=== PATIENT | male | born 1990 | race Caucasian/White ===

== ENCOUNTER 2017-09-18 15:26 | Emergency (ER) | payer BC, OTHER ==
[~2017-09-18] VITALS: Ht 188 cm; Wt 99.8 kg
--- NOTE | 2017-09-18 16:52 | General Progress Note ---
Progress Note Progress Note Surgery: full note to follow. 26M with sacral cellulitis. first noted a few days ago as small area of discomfort and tenderness. went to urgent care and was given PO Keflex and Bactrim and discharged. states he has been taking po abx for 1-2 days now without improvement. has history of Crohn's disease and is currently on Kayli. Has history of perirectal abscess requiring OR drainage. was concerned given history and lack of improvement so came to ED for evaluation. On exam in the proximal sacral region around the buttock cleft he has an area of induration without significant fluctuance. no drainage. distal to that there are some Pilonidal clefts that are small. likely to be uncomplicated pilonidal disease with infection. cannot confirm on exam if there underlying abscess or just induration/cellulitis. Recommend CT scan of pelvis to evaluate. if abscess will need small I&D to drain then course of oral abx. if no abscess should just complete course of abx. discussed with patient and he expressed understanding. will await CT results either way can d/c home on oral abx and some pain meds. office information given to patient and he will follow up with me this Tuesday Raymundo Bojorquez Sep 18, 2017 16:52
[2017-09-18 16:53] LABS: APPEARANCE,URINE CLEAR; BILIRUBIN, URINE NEGATIVE (NEGATIVE); GLUCOSE, URINE (UA) NEGATIVE (NEGATIVE); KETONES,URINE NEGATIVE (NEGATIVE); LEUKOCYTE ESTERASE ,URINE 1+ (NEGATIVE); NITRITE,URINE NEGATIVE (NEGATIVE); PH,URINE 6 (4.5-8.0); PROTEIN,URINE 1+ (NEGATIVE); UROBILINOGEN,URINE 4 MG/DL (0.0-1.0)
[2017-09-18 16:54] LABS: COLOR,URINE YELLOW
[2017-09-18 17:02] LABS: BASOPHILS % (AUTO) 1.7 % (0.0-2.0); EOSINOPHILS % (AUTO) 0.7 % (0.0-3.0); HEMATOCRIT 43.5 % (42.0-52.0); HEMOGLOBIN 15.3 G/DL (14.2-18.0); MEAN CORPUSCULAR VOLUME 89 FL (80-99); MONOCYTES % (AUTO) 12.5 % (1.0-10.0); NEUTROPHILS % (AUTO) 65.2 % (45.0-75.0); PLATELET COUNT 289 K/UL (150-450); RED BLOOD COUNT 4.89 M/UL (4.70-6.10); RED CELL DISTRIBUTION WIDTH 10.5 % (11.6-14.8); WHITE BLOOD COUNT 14.8 K/UL (4.8-10.8)
[2017-09-18 17:04] LABS: ANION GAP 11 mmol/L (5-15); BLOOD UREA NITROGEN 10 mg/dL (7-18); CALCIUM 9.9 MG/DL (8.5-10.1); CARBON DIOXIDE 28 MMOL/L (21-32); CHLORIDE 101 MMOL/L (98-107); CREATININE 1.3 MG/DL (0.55-1.30); POTASSIUM 4.5 MMOL/L (3.5-5.1); SODIUM 140 MMOL/L (136-145)
[2017-09-18 17:14] LABS: ALANINE AMINOTRANSFERASE 66 U/L (12-78); ALBUMIN/GLOBULIN RATIO 0.7 (1.0-2.7); ALKALINE PHOSPHATASE 115 U/L (46-116); ASPARTATE AMINO TRANSFERASE 26 U/L (15-37)
[2017-09-18 17:38] VITALS: BP 109/67
[2017-09-18] MEDS ORDERED: TRAMADOL HCL50 MG ORAL (18:20)
[2017-09-18] MEDS ORDERED: AUGMENTIN 500-1 EACH ORAL (18:20)
[2017-09-18] MEDS ORDERED: IBUPROFEN600 MG ORAL (18:20)
[2017-09-18 18:26] VITALS: BP 109/67
--- NOTE | 2017-09-18 19:39 | Emergency Room Report ---
History of Present Illness General Chief Complaint: Skin Rash/Abscess Source: Patient Present Illness HPI Patient is a 26-year-old male presenting for possible infection on lower back. He states that he noticed a bump on the mid lower back approximately 5 days ago which has been increasing in size and pain. Pain is now 9/10 dull ache and is worse with touch and sitting. He has a stated history of Crohn disease and had a perianal abscess 3 years prior which needed surgery. He states that he also had recent symptoms including cough, fever, chills, sore throat one week ago which is resolving. He has stopped using his Humira during this time. He denies other symptoms including nausea, vomiting, diarrhea, constipation, pain with defecation, abdominal pain Allergies: Coded Allergies: No Known Allergies (Unverified , 09/18/17) Patient History Past Medical History: see triage record Pertinent Family History: none Reviewed Nursing Documentation: PMH: Agreed, PSxH: Agreed Nursing Documentation-PMH Past Medical History: No History, Except For Hx Cardiac Problems: Yes - heart murmur Review of Systems All Other Systems: negative except mentioned in HPI Physical Exam Vital Signs Date Time Temp Pulse Resp B/P (MAP) Pulse Ox O2 Delivery O2 Flow Rate FiO2 09/18/17 15:35 100.0 119 18 128/84 96 Room Air Sp02 EP Interpretation: reviewed, normal General Appearance: no apparent distress, alert, GCS 15, non-toxic Head: normocephalic, atraumatic Eyes: bilateral eye normal inspection, bilateral eye PERRL ENT: hearing grossly normal, normal pharynx, no angioedema, normal voice Neck: full range of motion, supple/symm/no masses Respiratory: chest non-tender, lungs clear, normal breath sounds, speaking full sentences Gastrointestinal: normal bowel sounds, non tender, soft, non-distended, no guarding, no rebound Genitourinary: normal inspection, no CVA tenderness Musculoskeletal: back normal, gait/station normal, normal range of motion, non- tender Neurologic: alert, oriented x3, responsive, sensory intact Psychiatric: judgement/insight normal, memory normal, mood/affect normal, no suicidal/homicidal ideation Skin: rash - indurated erythema to the superior aspect of the gluteal area Medical Decision Making PA Attestation Dr. Fernandes is my supervising physician. Patient management was discussed with my supervising physician Diagnostic Impression: Primary Impression: Pilonidal cyst ER Course Patient is a 26-year-old male presenting for possible infection on lower back. Differential diagnoses considered but not limited to: abscess, pilonidal cyst, nat-anal abscess, cellulitis PE: Afebrile. NAD indurated erythema to the superior aspect of the gluteal area. TTP. Non fluctuant. No signs of tracking to rectum. Blood work shows leukocytosis. Otherwise unremarkable CT scan of the pelvis shows a 2.5 cm cystic density with stranding at the lower sacrum. Pilonidal cyst versus abscess. Dr. Bojorquez was consulted and came to the emergency department for evaluation. He is advised for the patient to be discharged home on Augmentin and to see him in his office on 09/21 The patient understands and agrees with this plan. He was told to return to the emergency department sooner if he notices symptoms including fever, chills, increased pain, increased swelling, pain with defecation, or for any other reason Laboratory Tests Test 09/18/17 16:30 09/18/17 16:32 White Blood Count 14.8 K/UL (4.8-10.8) H Red Blood Count 4.89 M/UL (4.70-6.10) Hemoglobin 15.3 G/DL (14.2-18.0) Hematocrit 43.5 % (42.0-52.0) Mean Corpuscular Volume 89 FL (80-99) Mean Corpuscular Hemoglobin 31.2 PG (27.0-31.0) H Mean Corpuscular Hemoglobin Concent 35.1 G/DL (32.0-36.0) Red Cell Distribution Width 10.5 % (11.6-14.8) L Platelet Count 289 K/UL (150-450) Mean Platelet Volume 9.2 FL (6.5-10.1) Neutrophils (%) (Auto) 65.2 % (45.0-75.0) Lymphocytes (%) (Auto) 20.0 % (20.0-45.0) Monocytes (%) (Auto) 12.5 % (1.0-10.0) H Eosinophils (%) (Auto) 0.7 % (0.0-3.0) Basophils (%) (Auto) 1.7 % (0.0-2.0) Prothrombin Time 10.7 SEC (9.30-11.50) Prothrombin Time INR 1.0 (0.9-1.1) PTT 29 SEC (23-33) Sodium Level 140 MMOL/L (136-145) Potassium Level 4.5 MMOL/L (3.5-5.1) Chloride Level 101 MMOL/L (98-107) Carbon Dioxide Level 28 MMOL/L (21-32) Anion Gap 11 mmol/L (5-15) Blood Urea Nitrogen 10 mg/dL (7-18) Creatinine 1.3 MG/DL (0.55-1.30) Estimate Glomerular Filtration Rate > 60 mL/min (>60) Glucose Level 108 MG/DL (74-106) H Calcium Level 9.9 MG/DL (8.5-10.1) Total Bilirubin 1.0 MG/DL (0.2-1.0) Aspartate Amino Transferase (AST) 26 U/L (15-37) Alanine Aminotransferase (ALT) 66 U/L (12-78) Alkaline Phosphatase 115 U/L (46-116) Total Protein 9.7 G/DL (6.4-8.2) H Albumin 4.0 G/DL (3.4-5.0) Globulin 5.7 g/dL Albumin/Globulin Ratio 0.7 (1.0-2.7) L Lipase 101 U/L (73-393) Urine Color Yellow Urine Appearance Clear Urine pH 6 (4.5-8.0) Urine Specific [place] 1.015 (1.005-1.035) Urine Protein 1+ (NEGATIVE) H Urine Glucose (UA) Negative (NEGATIVE) Urine Ketones Negative (NEGATIVE) Urine Occult Blood 2+ (NEGATIVE) H Urine Nitrite Negative (NEGATIVE) Urine Bilirubin Negative (NEGATIVE) Urine Urobilinogen 4 MG/DL (0.0-1.0) H Urine Leukocyte Esterase 1+ (NEGATIVE) H Urine RBC 5-10 /HPF (0 - 0) H Urine WBC 2-4 /HPF (0 - 0) Urine Squamous Epithelial Cells None /LPF (NONE/OCC) Urine Bacteria Few /HPF (NONE) Lab Results Impression Leukocytosis CT/MRI/US Diagnostic Results CT/MRI/US Diagnostic Results : Imaging Test Ordered: CT pelvis Impression CT scan of the pelvis shows a 2.5 cm cystic density with stranding at the lower sacrum. Pilonidal cyst versus abscess Last Vital Signs Date Time Temp Pulse Resp B/P (MAP) Pulse Ox O2 Delivery O2 Flow Rate FiO2 09/18/17 18:26 99.4 101 17 109/67 96 Room Air Status: improved Disposition: HOME, SELF-CARE Condition: Improved Scripts Tramadol Hcl* (ULTRAM*) 50 Mg Tablet 50 MG ORAL Q6H Y for For Pain, #10 TAB 0 Refills Prov: TERROWANANELLIOTT P.A. 09/18/17 Ibuprofen* (MOTRIN*) 600 Mg Tablet 600 MG ORAL Q8H Y for For Pain, #30 TAB 0 Refills Prov: TERZIANELLIOTT P.A. 09/18/17 Amoxicillin/Potassium Clav 500-125 Tablet* (AUGMENTIN 500-125 TABLET*) 1 Each Tablet 1 TAB ORAL THREE TIMES A DAY, #15 TAB Prov: TERELLIOTT DUENAS P.A. 09/18/17 Patient Instructions: Incision and Drainage of a Pilonidal Cyst Additional Instructions: I discussed my findings with the patient. All questions and concerns have been answered. Treatment and medication compliance have been addressed. Return to ED if symptoms worsen, new symptoms arise, or if needed for any reason. Patient verbalized understanding of discharge instructions. You were seen by Dr. Bojorquez who has provided you his card. You were informed to call him on 09/19 in order to make appointment for 09/21. Please return to the emergency department sooner if you experience any symptoms including fever, worsening pain, pain with defecation, or for any other reason ELLIOTT LO Sep 18, 2017 19:39
--- NOTE | 2017-09-19 14:46 | Consultation ---
History of Present Illness General Date patient seen: Sep 18, 2017 Chief Complaint: Skin Rash/Abscess Present Illness HPI 26M with sacral cellulitis. first noted a few days ago as small area of discomfort and tenderness. went to urgent care and was given PO Keflex and Bactrim and discharged. states he has been taking po abx for 1-2 days now without improvement. has history of Crohn's disease and is currently on Kayli. Has history of perirectal abscess requiring OR drainage. was concerned given history and lack of improvement so came to ED for evaluation. Given location, medical history, and exam surgery called to evaluate for possible intervention. patient seen, history reviewed, labs reviewed. On exam in the proximal sacral region around the buttock cleft he has an area of induration without significant fluctuance. no drainage. distal to that there are some Pilonidal clefts that are small. Allergies: Coded Allergies: No Known Allergies (Unverified , 09/18/17) Medication History Scheduled Amoxicillin/Potassium Clav 500-125 Tablet* (Augmentin 500-125 Tablet*), 1 TAB ORAL THREE TIMES A DAY Scheduled PRN Ibuprofen* (Motrin*), 600 MG ORAL Q8H PRN for For Pain Tramadol Hcl* (Ultram*), 50 MG ORAL Q6H PRN for For Pain Patient History History Provided By: Patient Healthcare decision maker Resuscitation status Advanced Directive on File Past Medical/Surgical History Past Medical/Surgical History: (1) Pilonidal cyst Review of Systems Constitutional: Denies: no symptoms, see HPI, chills, sweats, fever, malaise, weakness, other Eye: Denies: no symptoms, see HPI, eye pain, blurred vision, tearing, double vision, nose pain, nose congestion, acuity changes, discharge, other ENT: Denies: no symptoms, see HPI, ear pain, ear discharge, nose pain, nose congestion, throat pain, throat swelling, mouth pain, hearing loss, nasal discharge, other Respiratory: Denies: no symptoms, see HPI, cough, orthopnea, shortness of breath, stridor, wheezing, AYOUB, sputum, other Cardiovascular: Denies: no symptoms, see HPI, chest pain, edema, palpitations, syncope, PND, other Gastrointestinal: Denies: no symptoms, see HPI, abdominal pain, constipation, diarrhea, nausea, vomiting, melena, hematemesis, other Genitourinary: Denies: no symptoms, see HPI, discharge, dysuria, frequency, hematuria, pain, retention, incontinence, urgency, vag bleed/dc, other Musculoskeletal: Denies: no symptoms, see HPI, back pain, gout, joint pain, joint swelling, muscle pain, muscle stiffness, other Skin: Denies: no symptoms, see HPI, rash, change in color, change in hair/nails , dryness, lesions, other Psychiatric: Denies: no symptoms, see HPI, prior hx, anxiety, depressed feelings, emotional problems, SI, HI, hallucinations, other Neurological: Denies: no symptoms, see HPI, headache, numbness, paresthesia, seizure, tingling, tremors, focal weakness, syncope, dizziness, other Endocrine: Denies: no symptoms, see HPI, excessive sweating, flushing, intolerance to temperature, increased thirst, increased urine, unexplained weight loss, other Hematologic/Lymphatic: Denies: no symptoms, see HPI, anemia, blood clots, easy bleeding, easy bruising, swollen glands, diathesis, other All Other Systems: negative except mentioned in HPI Physical Exam General Appearance: WD/WN, no apparent distress, alert Lines, tubes and drains: peripheral HEENT: normocephalic, atraumatic, mucous membranes moist, PERRL Neck: normal alignment, supple, normal inspection Respiratory/Chest: chest wall non-tender, lungs clear, normal breath sounds, no respiratory distress, no accessory muscle use Cardiovascular/Chest: normal peripheral pulses, normal rate, regular rhythm Abdomen: normal bowel sounds, non tender, soft, no organomegaly, no mass Genitourinary/Rectal: other - 3cm x 2cm sacral cellulitis with induration but no fluctuance. no drainage. small area of pilonidal clefts noted. tender erythema. edema. no drainage Extremities: normal range of motion, non-tender Skin Exam: normal pigmentation, warm/dry Neurologic: alert, oriented x 3, responsive Last 24 Hour Vital Signs Date Time Temp Pulse Resp B/P (MAP) Pulse Ox O2 Delivery O2 Flow Rate FiO2 09/18/17 18:26 99.4 101 17 109/67 96 Room Air 09/18/17 17:38 99.4 101 17 109/67 96 Room Air 09/18/17 15:35 100.0 119 18 128/84 96 Room Air Laboratory Tests Test 09/18/17 16:30 09/18/17 16:32 White Blood Count 14.8 K/UL (4.8-10.8) H Red Blood Count 4.89 M/UL (4.70-6.10) Hemoglobin 15.3 G/DL (14.2-18.0) Hematocrit 43.5 % (42.0-52.0) Mean Corpuscular Volume 89 FL (80-99) Mean Corpuscular Hemoglobin 31.2 PG (27.0-31.0) H Mean Corpuscular Hemoglobin Concent 35.1 G/DL (32.0-36.0) Red Cell Distribution Width 10.5 % (11.6-14.8) L Platelet Count 289 K/UL (150-450) Mean Platelet Volume 9.2 FL (6.5-10.1) Neutrophils (%) (Auto) 65.2 % (45.0-75.0) Lymphocytes (%) (Auto) 20.0 % (20.0-45.0) Monocytes (%) (Auto) 12.5 % (1.0-10.0) H Eosinophils (%) (Auto) 0.7 % (0.0-3.0) Basophils (%) (Auto) 1.7 % (0.0-2.0) Prothrombin Time 10.7 SEC (9.30-11.50) Prothromb Time International Ratio 1.0 (0.9-1.1) Activated Partial Thromboplast Time 29 SEC (23-33) Sodium Level 140 MMOL/L (136-145) Potassium Level 4.5 MMOL/L (3.5-5.1) Chloride Level 101 MMOL/L (98-107) Carbon Dioxide Level 28 MMOL/L (21-32) Anion Gap 11 mmol/L (5-15) Blood Urea Nitrogen 10 mg/dL (7-18) Creatinine 1.3 MG/DL (0.55-1.30) Estimat Glomerular Filtration Rate > 60 mL/min (>60) Glucose Level 108 MG/DL (74-106) H Calcium Level 9.9 MG/DL (8.5-10.1) Total Bilirubin 1.0 MG/DL (0.2-1.0) Aspartate Amino Transf (AST/SGOT) 26 U/L (15-37) Alanine Aminotransferase (ALT/SGPT) 66 U/L (12-78) Alkaline Phosphatase 115 U/L (46-116) Total Protein 9.7 G/DL (6.4-8.2) H Albumin 4.0 G/DL (3.4-5.0) Globulin 5.7 g/dL Albumin/Globulin Ratio 0.7 (1.0-2.7) L Lipase 101 U/L (73-393) Urine Color Yellow Urine Appearance Clear Urine pH 6 (4.5-8.0) Urine Specific [place] 1.015 (1.005-1.035) Urine Protein 1+ (NEGATIVE) H Urine Glucose (UA) Negative (NEGATIVE) Urine Ketones Negative (NEGATIVE) Urine Occult Blood 2+ (NEGATIVE) H Urine Nitrite Negative (NEGATIVE) Urine Bilirubin Negative (NEGATIVE) Urine Urobilinogen 4 MG/DL (0.0-1.0) H Urine Leukocyte Esterase 1+ (NEGATIVE) H Urine RBC 5-10 /HPF (0 - 0) H Urine WBC 2-4 /HPF (0 - 0) Urine Squamous Epithelial Cells None /LPF (NONE/OCC) Urine Bacteria Few /HPF (NONE) Height (Feet): 6 Height (Inches): 2.00 Weight (Pounds): 220 Assessment/Plan Problem List: (1) Pilonidal cyst Assessment & Plan: likely to be uncomplicated pilonidal disease with infection. cannot confirm on exam if there underlying abscess or just induration/cellulitis. Recommend CT scan of pelvis to evaluate. if abscess will need small I&D to drain then course of oral abx. if no abscess should just complete course of abx. discussed with patient and he expressed understanding. will await CT results either way can d/c home on oral abx and some pain meds. office information given to patient and he will follow up with me this Tuesday CT done and reviewed. pilonidal cyst noted with surrounding cellulitis. would not recommend treatment of infected pilonidal cyst during actively infected period. will attempt to treat infection and once resolved plan for excision of cyst and treatment of pilonidal disease if desired. change to Augmentin po d/c home follow up with me this Tuesday ICD Codes: L05.91 - Pilonidal cyst without abscess SNOMED: [id number] Status: stable Benyamini,Raymundo Sep 19, 2017 14:45
--- NOTE | 2017-09-19 17:05 | Diagnostic Imaging Report ---
Indication: Pain Technique: CT of the pelvis utilizing automated exposure control without intravenous contrast material. Axial, sagittal and coronal images were generated. CT dose: Total DLP 442.62 mGycm; CTDI vol 14.76 mGy Comparison: None Findings: There is a 2.5 cm cystic structure in the subcutaneous tissues of the midline just about the area of the superior aspect of the gluteal cleft (series 4 image #52). It has internal low attenuation and surrounding inflammatory stranding. This may represent a pilonidal cyst versus abscess. No acute osseous abnormality is identified. The appendix is normal. Visualized bowel unremarkable. Bladder and prostate unremarkable. Impression: 2.5 cm rounded lesion in the midline about the level of the superior aspect of the gluteal cleft with surrounding inflammatory change. This may represent an infected/inflamed pilonidal cyst versus abscess. Correlate clinically. This corresponds with the statrad preliminary report. The CT scanner at [facility] is accredited by the [employer] and the scans are performed using protocols designed to limit radiation exposure to as low as reasonably achievable to attain images of sufficient resolution adequate for diagnostic evaluation.
== END 2017-09-18 18:26 | disposition home or self-care (01) ==
LOC: EMR 16:10
DX: L05.91 Pilonidal cyst without abscess (principal)
CPT/HCPCS: 36415; 72192; 80053; 81003; 83690; 85025; 85610; 85730; 99284